=== PATIENT | female | born 1995 | race Caucasian/White ===

== ENCOUNTER 2024-09-21 10:47 | Outpatient (REF) | payer BC, SELFPAY ==
[2024-09-21 17:00] LABS: Hematocrit 44.5 % (37.0-47.0); Hemoglobin 15.4 g/dl (12.0-16.0); Mean Corpuscular HGB Conc 34.6 g/dl (31.0-35.0); Mean Corpuscular Hemoglobin 30.7 pg (27.0-33.0); Mean Corpuscular Volume 88.6 fL (80.0-98.0); Mean Platelet Volume 11.3 fL (9.4-12.3); Platelet Count 256 X10*3/uL (160-400); Red Blood Count 5.02 X10*6/uL (4.20-5.50); Red Cell Distribution Width 11.9 % (11.0-16.0); White Blood Count 8.7 X10*3/uL (4.8-10.8)
[2024-09-21 17:24] LABS: Alanine Aminotransferase 15 U/L (0-31); Albumin Level 4.5 g/dL (3.5-5.0); Alkaline Phosphatase 46 U/L (39-117); Anion Gap 13 (12-20); Aspartate Amino Transferase 21 U/L (5-31); Bilirubin Total 0.4 mg/dL (0.0-1.0); Blood Urea Nitrogen 10 mg/dL (9-16); Calcium 9.4 mg/dL (8.4-10.2); Carbon Dioxide 22 mmol/L (22-29); Chloride 107 mmol/L (96-108); Estimated Glomerular Filt Rate > 60; Glucose Random 83 mg/dL (60-115); Sodium 138 mmol/L (135-145); Total Protein 7.5 g/dL (6.5-8.0)
[2024-09-21 17:25] LABS: Creatinine Urine 39.23 mg/dL; Microalbumin Urine < 5.0 mg/L
[2024-09-21 17:31] LABS: Monotest Negative (Negative)
[2024-09-21 17:38] LABS: Estimated Average Glucose 100 mg/dL; Hemoglobin A1C 121.0911 umol/L; Hemoglobin A1c % 5.1 % (<6.0); Total Hemoglobin (HGBA1C) 3787.2048 umol/L
[2024-09-21 17:42] LABS: TSH reflex Free T4 4.25 uIU/mL (0.32-4.0); Vitamin D 25-OH Total 95.4 ng/mL (>30)
[2024-09-21 17:44] LABS: Erythrocyte Sedimentation Rate 3 MM/HR (0-20)
[2024-09-21 17:49] LABS: Folate 13.8 ng/mL (> or = 4.0); Vitamin B12 404 pg/mL (200-900)
[2024-09-21 18:31] LABS: Free T4 (Free Thyroxine) 0.96 ng/dL (0.71-1.85)
[2024-09-22 10:48] LABS: CRP High Sensitivity 4.3 mg/L
[2024-09-22 17:04] LABS: LDL Cholesterol Direct 128 mg/dL (<100)
== END 2024-09-21 10:48 | disposition home or self-care (01) ==
LOC: HO.HMGCLDS 10:47
PROVIDERS: PCP Nurse Practitioner Family; Visit Provider Nurse Practitioner Family
DX: Z00.01 Encounter for general adult medical examination with abnormal findings (principal); Z23 Encounter for immunization; R59.0 Localized enlarged lymph nodes; E01.0 Iodine-deficiency related diffuse (endemic) goiter; J34.3 Hypertrophy of nasal turbinates; F33.1 Major depressive disorder, recurrent, moderate; F41.1 Generalized anxiety disorder; J30.2 Other seasonal allergic rhinitis; B97.7 Papillomavirus as the cause of diseases classified elsewhere; Z80.41 Family history of malignant neoplasm of ovary; Z80.52 Family history of malignant neoplasm of bladder
CPT/HCPCS: 36415; 80053; 82043; 82306; 82570; 82607; 82746; 83036; 83721; 84439; 84443; 85027; 85652; 86141; 86308; 90471; 90715; 96127

== ENCOUNTER 2024-09-21 10:47 | Outpatient (AMB) | payer BC, SELFPAY ==
--- NOTE | 2024-09-21 10:50 | A.OFFPC_ITS ---
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: No Was dental information given to patient?: Patient has dentist HPI HPI Comments History of Present Illness Details 29 y/o F with AJAY, MDD, seasonal allergi es, HPV, family hx ovarina cancer, family hx off bladder cancer s/p LEEP, salivary gland removed L Family hx: ovarian ca, bladder ca Social: School for [employer], works as [employer] Health Maintenance Flu declined Tdap today Pap hx of abnormal, 2023 normal managed by [facility] Neuro - no longer following [facility] Prescriber/Counselor Here today to est care & for a CPE, coming from Dr Perez, very limited MR rec'd and reviewed prior to visit; US 08/2020 Right internal jugular chain lymphadenopathy 0.8x1.8x2.6cm She does not have quileute syndrome Saw ENT for salivary gland on R removal Abnormal IMMUNOPATHOLOGIST US now MRI ordered and pending Swollen turbinates hard time breathing MDD/AJAY currently managed by outside prescriber however wonders if PCP can take over meds. c/o chronic R cervical lymphadenopathy. This condition was first noted in 2019 following an ultrasound that revealed a right internal jugular chain lymph node which was abnormal but indeterminate. She has experienced persistent swelling in several lymph nodes, unchanged over the last six years. The patient reports a sensation of hearing her heartbeat upon palpating the nodes, which is concerning for underlying pathology. She has not been followed up by an ear, nose, and throat (ENT) specialist despite previous recommendations, which were misunderstood to involve care in [place], where follow-up did not occur. There have been no changes in the size of the lymph nodes. Additionally, the patient had an abnormal pelvic ultrasound conducted recently due to worsening pelvic pain, which revealed the presence of masses in her lower abdomen. An MRI is pending. The patient has a family history of ovarian cancer and bladder cancer, which heightens her concern about these findings. 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 She uses an oral appliance for TMJ management. Socially, the patient relocated from [place] to [place] in 2019, impacting her access to consistent healthcare at the time. Health Maintenance - Discussed immunization status; patient declined flu vaccine. - Recommended updating tetanus vaccine; administered today. - Screening labs ordered for blood work including diabetes and cholesterol. - Encouraged use of patient portal for [facility] communication and access. - Discussed importance of regular pelvic exams and Pap smears. Review of Systems - ENT/Head: Reports nasal obstruction an d facial pain. - Cardiovascular: Reports hearing heartb eat in right ear upon palpation. - Neurological: Denies current facial pa in. - Mental Health: Reports well-controlled anxiety and depression. Exam: General: Well developed, well nourished, in no acute distress. Appears stated age. Head: Normocephalic, atraumatic. Eyes: Pupils are equal, round and reactive to light and accommodation. Conjunctivae are clear. Vision grossly normal. Ears: TMs clear AU, EACS WNL Nose: Patent, without discharge. Turbinates edematous bilat Mouth: There are no ulcers or lesions noted. No inflammation, no post nasal drip, no plaques nor exudates. Neck: Supple, palpable lymph nodes in the right internal jugular chain, some tenderness noted, thyroid palp nontender , trachea midline Lungs: Clear to auscultation bilaterally. No rales, rhonchi or wheeze noted. Good air flow in all [place]. Heart: Regular rate and rhythm. No murmurs, click, rubs or gallops are noted. Abdomen: Bowel sounds present in all quadrants. The abdomen is soft, nontender, with no masses or organomegaly noted. No hernias are noted. Musculoskeletal: Joints are nontender, without swelling, redness, or effusions. Range of motion is observed to be normal. Pulses: Peripheral pulses are equal and palpable bilaterally. Extremities: No clubbing, cyanosis nor edema is noted. Neurologic: Gait and station normal. Cranial Nerves 2-12 intact. Motor strength grossly symmetrical and intact. No sensory loss. Balance normal. Skin: No rashes, ulcers, or lesions noted. Turgor is good. Skin color is good. Hair and nails are without abnormalities. Psych: Normal eye contact, affect and mood appropriate, and normal interactions. Patient is alert and appropriate to context. Plan - Cervical Lymphadenopathy: Order a CT s can of soft tissue neck including thyroid to evaluate lymph nodes and thyroid gland status & refer to ENT in [place]. - Abnormal Pelvic Findings: Await MRI fo r further evaluation of pelvic masses. Maintain communication with patient regarding MRI scheduling and results which is being managed by IMMUNOPATHOLOGIST. - Swollen Turbinates: Refer to ENT for f urther evaluation and potential treatment options. - TMJ Dysfunction: Continue using oral a ppliance; consider referral to dental specialist for advanced TMJ therapies. - Mental Health: Continue current medica tions lorazepam, lamotrigine, citalopram and monitor for efficacy. - Vaccination: Administer tetanus booste r. - Screening: Ensure completion of blood screening tests for baseline evaluation and pre-CT scan requirements. Patient was informed and verbally consented to the use of an ambient scribe for clinic note documentation during this visit. Discussion Notes During the consultation, we discussed the history of lymphadenopathy and the potential need for ENT follow-up, given the lack of prior follow-up in [place]. I clarified the plan to pursue a CT scan to assess lymphatic and thyroid structures more thoroughly. We reviewed the importance of monitoring any changes in cervical nodes and emphasized timely communication of any worrisome symptoms. Regarding the pelvic findings, we acknowledged the anxiety stemming from family cancer history and discussed the MRI as a crucial next step. I recommended ENT consultation for nasal congestion and possible TMJ linkages to facial pain. We also reviewed the patient's medication regimen and addressed concerns about continuity of psychiatric prescriptions if counseling services are concluded. Screening labs will be pursued to ensure complete evaluation and peace of mind. Patient Instructions - Schedule and attend the CT scan as adv ised. - Ensure timely completion of the MRI fo r pelvic evaluation. - Follow up with ENT as per referral for nasal and TMJ issues. - Adhere to prescribed psychotropic medi cations consistently. - Attend follow-up appointment with me ander jackson approximately four weeks for results discussion. - Utilize the patient portal actively fo r updates and communication. - Complete blood screening tests at a co nvenient location within the network. Telehealth fu in 4 weeks to review labs and imaging, sooner PRN This note is constructed using voice recognition software. While every effort has been made to ensure accuracy in business analysis specialist, still errors may have been included Sometimes, these errors may affect the content or meaning of the given sentence . An additional 30 minutes was spent addressing the problem(s) noted at todays visit. This includes time spent before the visit reviewing the chart, time spent during the visit, and time spent after the visit on documentation PFSH Medical History (Updated 09/21/24 @ 12:51 by TAM Garcia) Salivary duct stones Abnormal pelvic exam Surgical History (Updated 09/21/24 @ 11:43 by TAM Garcia) H/O LEEP No pertinent past surgical history Family History (Updated 09/21/24 @ 11:01 by Loy Pabon MA) Father Mental health disorder Substance abuse Mother Mental health disorder Substance abuse Asthma Cardiovascular disease Paternal Grandmother Cancer Social History (Updated 09/21/24 @ 10:59 by Loy Pabon MA) Household Members: Significant Other Both parents involved: No Caregiver staying overnight: No Housing: House Are you a primary healthcare applications analyst to a significant other at home: No Do you presently have visiting nurse or other home services: No 75 years or older and lives alone: No Alcohol intake: current Alcohol intake frequency: a few times a month Patient Tobacco Use Status: Never used Tobacco e-Cigarette/Vaping Use: Never Used Second Hand Smoke Exposure: No Current occupational status: employed 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 1. Little interest or pleasure in doing things: not at all 2. Feeling down, depressed, or hopeless: not at all 3. Trouble falling or staying asleep, or sleeping too much: not at all 4. Feeling tired or having little energy: not at all 5. Poor appetite or overeating: not at all 6. Feeling bad about yourself - or that you are a failure or have let yourself or your family down: not at all 7. Trouble concentrating on things, such as reading the newspaper or watching television: not at all 8. Moving or speaking so slowly that other people could have noticed. Or the opposite - being so fidgety or restless that you have been moving around a lot more than usual: not at all 9. Thoughts that you would be better off or of hurting yourself in some way: not at all Total score: 0 Depression Screening Interpretation: Negative Depression Screening Done: Yes 09800 - PHQ-9 Billing: Yes Source: Developed by Drs. Valente Raphael, Camila Claudio, Brian Owen and colleagues, with an educational kaleb from [employer]. Thrive Questionnaire Date Thrive assessed: 09/21/24 I am a: Patient What is your living situation today?: I have a steady place to live Within the past 12 months, did the food you bought not last and you didn't have the money to get more?: Never true Within the past 12 months, did you worry whether your food would run out before you got money to buy more?: Never true Do you have trouble paying for medicines?: No Do you have trouble getting transportation to medical appointments?: No Do you have trouble paying your heating and electricity bill?: No Do you have trouble taking care of your child, family member or friend?: No Do you have trouble with day-to-day activities such as bathing, preparing meals, shopping, managing finances, etc.?: No Are you currently unemployed and looking for a job?: No Are you interested in more education?: No Please select the resources that you would like help with: None Currently or been in a relationship where the following occur: No concerns reported THRIVE Score: 0 AUDIT C Alcohol Use Questionnaire (AUDIT-C) 1. How often do you have a drink containing alcohol?: Monthly or less 2. How many drinks containing alcohol do you have on a typical day when you are drinking?: 1 or 2 3. How often do you have six or more drinks on one occasion?: Never Total Score: 1 Score Reviewed/Action Taken: Yes AJAY-7 AMB Questionnaire AJAY-7 Date AJAY - 7 assessed: 09/21/24 Feeling nervous, anxious, or on edge: 1 = Several days Not being able to stop or control worryin = Not at all Worrying too much about different things: 0 = Not at all Trouble relaxin = Not at all Being so restless that it is hard to sit still: 0 = Not at all Becoming easily annoyed or irritable: 0 = Not at all Feeling afraid as if something awful might happen: 0 = Not at all Total AJAY-7 score (0-4 normal; 5-9 mild; 10-14 moderate; 15-21 severe): 1 Source: Developed by Drs. Valente Raphael, Camila Claudio, Brian Owen and colleagues, with an educational kaleb from [employer]. AJAY-7 Assessment Billing AJAY-7 Assessment Tool: AJAY-7 Assessment 15839 Physical exam (Primary Care) Vital Signs: Last Vital Signs Pulse 77 09/21/24 11:02 Resp 13 09/21/24 11:02 BP 112/68 09/21/24 11:02 Pulse Ox 99 09/21/24 11:02 Oxygen Delivery Method Room Air 09/21/24 11:02 BMI result Body Mass Index 25.2 Tobacco/Smoking Status: Tobacco use Status Tobacco use date assessed 09/21/24 09/21/24 11:03 Patient Tobacco Use Status Never used Tobacco 09/21/24 11:03 e-Cigarette/Vaping Use Never Used 09/21/24 11:03 PHQ-9: PHQ-9 Score PHQ-9: Total score 0 09/21/24 11:51 Depression Screening Interpretation: Negative Thrive Assessment: Date of Thrive Assessment Date Thrive assessed 09/21/24 09/21/24 10:51 Currently or been in a relationship where the following occur: No concerns reported Immunizations Boostrix Tdap 2.5 Lf unit-8 mcg-5 Lf/0.5 mL intramuscular syringe Performing Provider: TAM Garcia Performing Location: [facility] [place] Family Medicine Administered by: Christal Fonseca RN on 09/21/24 11:51 Dose Route Admin Location Dispensed Lot Number Expiration Date NDC Dovetailer 0.5 mL IM Left Deltoid 0.5 mL [id number] 11/04/26 [id number] 1C Company VIS Given Date VIS Provided VIS Publication Date 09/21/24 Single Vaccine 21 Eligibility Eligibility Date Funding Source Not [facility] Eligible 09/21/24 Private Coding Level of Care Code New Pt Level 4 (71034) New Pt Prev Care 18-39yr(40691 Diagnoses Encounter for general adult medical examination with abnormal findings Z00.01 Influenza vaccination declined Z28.21 Laboratory exam ordered as part of routine general medical examination Z00.00 Need for Tdap vaccination Z23 Cervical lymphadenopathy R59.0 Thyromegaly E01.0 Hypertrophy of nasal turbinates J34.3 Moderate episode of recurrent major depressive disorder F33.1 Major depression episode severity: moderate AJAY (generalized anxiety disorder) F41.1 Seasonal allergies J30.2 Family history of ovarian cancer Z80.41 Family history of bladder cancer Z80.52 HPV in female B97.7 Additional Codes AJAY-7 Assessment Billing - AJAY-7 Assessment Tool: AJAY-7 Assessment 71566 ([id number]) PHQ-9 - 13865 - PHQ-9 Billing: Yes ([id number]) Assessment & Plan Assessment & Plan (1) Encounter for general adult medical examination with abnormal findings: Code(s): Z00.01 - Encounter for general adult medical examination with abnormal findings (2) Influenza vaccination declined: Code(s): Z28.21 - Immunization not carried out because of patient refusal Category: Medical (3) Laboratory exam ordered as part of routine general medical examination: Code(s): Z00.00 - Encounter for general adult medical examination without abnormal findings Category: Medical (4) Need for Tdap vaccination: Code(s): Z23 - Encounter for immunization Category: Medical (5) Cervical lymphadenopathy: Code(s): R59.0 - Localized enlarged lymph nodes Category: Medical (6) Thyromegaly: Code(s): E01.0 - Iodine-deficiency related diffuse (endemic) goiter Category: Medical (7) Hypertrophy of nasal turbinates: Code(s): J34.3 - Hypertrophy of nasal turbinates Category: Medical (8) MDD (major depressive disorder), recurrent episode: Code(s): F33.9 - Major depressive disorder, recurrent, unspecified Category: Medical Qualifiers: Major depression episode severity: moderate Qualified Code(s): F33.1 - Major depressive disorder, recurrent, moderate (9) AJAY (generalized anxiety disorder): Code(s): F41.1 - Generalized anxiety disorder Category: Medical (10) Seasonal allergies: Code(s): J30.2 - Other seasonal allergic rhinitis Category: Medical (11) Family history of ovarian cancer: Code(s): Z80.41 - Family history of malignant neoplasm of ovary Category: Medical (12) Family history of bladder cancer: Code(s): Z80.52 - Family history of malignant neoplasm of bladder Category: Medical (13) HPV in female: Code(s): B97.7 - Papillomavirus as the cause of diseases classified elsewhere Category: Medical Plan . Orders: Orders Complete Blood Count no Diff Today R59.0 - Localized enlarged lymph nodes, Z00.00 - Encounter for general adult medical examination without abnormal findings LDL Cholesterol Direct Today R59.0 - Localized enlarged lymph nodes, Z00.00 - Encounter for general adult medical examination without abnormal findings Comprehensive Met. Panel Today R59.0 - Localized enlarged lymph nodes, Z00.00 - Encounter for general adult medical examination without abnormal findings Microalbumin, Random (w Creat) Today R59.0 - Localized enlarged lymph nodes, Z00.00 - Encounter for general adult medical examination without abnormal findings Vitamin B12 and Folate Today R59.0 - Localized enlarged lymph nodes, Z00.00 - Encounter for general adult medical examination without abnormal findings Monotest Today R59.0 - Localized enlarged lymph nodes, Z00.00 - Encounter for general adult medical examination without abnormal findings Erythrocyte Sedimentation Rate Today R59.0 - Localized enlarged lymph nodes, Z00.00 - Encounter for general adult medical examination without abnormal findings TDaP Immunization Today Z23 - Encounter for immunization Hemoglobin A1c Today R59.0 - Localized enlarged lymph nodes, Z00.00 - Encounter for general adult medical examination without abnormal findings TSH reflex Free T4 Today R59.0 - Localized enlarged lymph nodes, Z00.00 - Encounter for general adult medical examination without abnormal findings Vitamin D 25-OH Total Today R59.0 - Localized enlarged lymph nodes, Z00.00 - Encounter for general adult medical examination without abnormal findings CRP High Sensitivity Today R59.0 - Localized enlarged lymph nodes, Z00.00 - Encounter for general adult medical examination without abnormal findings CT soft tissue neck w IV con Today E01.0 - Iodine-deficiency related diffuse (endemic) goiter, R59.0 - Localized enlarged lymph nodes Referrals Ear/Nose/Throat Referral J34.3 - Hypertrophy of nasal turbinates, R59.0 - Localized enlarged lymph nodes Patient Instructions: Health screenings for women You should visit your health care provider from time to time, even if you are healthy. The purpose of these visits is to: Screen for medical issues Assess your risk for future medical problems Encourage a healthy lifestyle Update vaccinations and other preventive care services Help you get to know your provider in case of an illness Information Even if you feel fine, you should still see your provider for regular checkups. These visits can help you avoid problems in the future. For example, the only way to find out if you have high blood pressure is to have it checked regularly. High blood sugar and high cholesterol levels also may not have any symptoms in the early stages. A simple blood test can check for these conditions. There are specific times when you should see your provider or receive specific health screenings. The [place] Preventive Services Task Force publishes a list of recommended screenings. Below are screening guidelines for women ages 18 to 39. BLOOD PRESSURE SCREENING Your blood pressure should be checked at least once every 3 to 5 years if: Your blood pressure is in the normal range (top number less than 120 mm Hg and bottom number less than 80 mm Hg) You don't have risk factors for high blood pressure Ask your provider if you need your blood pressure checked more often if: The top number is 120 to 129 mm Hg or the bottom number is 70 to 79 mm Hg You have diabetes, heart disease, kidney problems, are overweight, or have certain other health conditions You have a first-degree relative with high blood pressure You are Black You had high blood pressure during a If the top number is 130 mm Hg or greater or the bottom number is 80 mm Hg or greater, this is considered stage 1 hypertension. Schedule an appointment with your provider to learn how you can reduce your blood pressure. Watch for blood pressure screenings in your area. Ask your provider if you can stop in to have your blood pressure checked. BREAST CANCER SCREENING Experts do not agree about the benefits of breast self-exams in finding breast cancer or saving lives. Talk to your provider about what is best for you. A screening mammogram is not recommended for most women under age 40. Your provider may discuss and recommend mammograms, MRI scans, or ultrasounds if you have an increased risk for breast cancer, such as: A mother or sister who had breast cancer at a young age (most often starting screening earlier than the age the close relative was diagnosed) You carry a high-risk genetic marker CERVICAL CANCER SCREENING Cervical cancer screening should start at age 21 years unless your provider advises otherwise. After the first test: Women ages 21 through 29 should have a Pap test every 3 years. Exoprts do not agree on whether HPV testing is recommended for this age group. Women ages 30 through 65 should be screened with either a Pap test every 3 years or the HPV test every 5 years or both tests every 5 years (called cotesting ). Women who have been treated for precancer (cervical dysplasia) should continue to have Pap tests for 20 years after treatment or until age 65, whichever is longer. If you have had your uterus and cervix removed (total hysterectomy), and you have not been diagnosed with cervical cancer or precancer (high grade cervical neoplasia), you do not need cervical cancer screening. CHOLESTEROL SCREENING Cholesterol screening should begin at: Age 45 for women with no known risk factors for coronary heart disease Age 20 for women with known risk factors for coronary heart disease Repeat cholesterol screening should take place: Every 5 years for women with normal cholesterol levels More often if changes occur in lifestyle (including weight gain and diet) More often if you have diabetes, heart disease, kidney problems, or certain other conditions DIABETES SCREENING You should be screened for diabetes starting at age 35 and then repeated every 3 years if you have no risk factors for diabetes. Screening may need to start earlier and be repeated more often if you have other risk factors for diabetes, such as: You have a first degree relative with diabetes. You are overweight or have obesity. You have high blood pressure, prediabetes, or a history of heart disease. Screening for diabetes should be done if you are planning to become and you are overweight and have other risk factors such as high blood pressure. DENTAL EXAM Go to the dentist once or twice every year for an exam and cleaning. Your dentist will evaluate if you need more frequent visits. EYE EXAM Have an eye exam every 5 to 10 years before age 40. If you have vision problems, have an eye exam every 2 years or more often if recommended by your provider. You should have an eye exam that includes an examination of your retina (back of your eye) at least every year if you have diabetes. IMMUNIZATIONS Commonly needed vaccines include: Flu shot: get one every year. COVID-19 vaccine: ask your provider what is best for you. Tetanus-diphtheria and acellular pertussis (Tdap) vaccine: have one at or after age 19 as one of your tetanus-diphtheria vaccines if you did not receive it as an adolescent. Tetanus-diphtheria: have a booster (or Tdap) every 10 years. Varicella vaccine: receive 2 doses if you never had chickenpox or the varicella vaccine. Hepatitis B vaccine: receive 2, 3, or 4 doses, depending on your exact circumstances. Measles, mumps, and rubella (MMR) vaccine: receive 1 to 2 doses if you are not already immune to MMR. Your provider can tell you if you are immune. Ask your provider about the human papillomavirus (HPV) vaccine if: You have not received the HPV vaccine in the past You have not completed the full vaccine series (you should catch up on this shot) Ask your provider if you should receive other immunizations if you have certain health problems that increase your risk for some diseases such as pneumonia. INFECTIOUS DISEASE SCREENING Women who are sexually active should be screened for chlamydia and gonorrhea up until age 25. Women 25 years and older should be screened for chlamydia and gonorrhea if at high risk. Screening for hepatitis C: All adults ages 18 to 79 should get a one-time test for hepatitis C. people should be screened at every . Screening for human immunodeficiency virus (HIV): All people ages 15 to 65 should get a one-time test for HIV. Depending on your lifestyle and medical history, you may also need to be scr eened for infections such as syphilis and HIV, as well as other infections. PHYSICAL EXAM All adults should visit their provider from time to time, even if they are healthy. The purpose of these visits is to: Screen for disease Assess your risk of future medical problems Encourage a healthy lifestyle Update your vaccinations and other preventive care services Maintain a relationship with a provider in case of an illness Your height, weight, and BMI should be checked at every exam. During your exam, your provider may ask you about: Depression and anxiety Diet and exercise Alcohol and tobacco use Safety issues, such as using seat belts, smoke detectors, and intimate partner violence Your medicines and risk for interactions SKIN SELF-EXAM Your provider may check your skin for signs of skin cancer, especially if you're at high risk, such as if you: Have had skin cancer before Have close relatives with skin cancer Have a weakened immune system OTHER SCREENING Talk with your provider about colon cancer screening if you have a strong family history of colon cancer or polyps, or if you have had inflammatory bowel disease or polyps yourself. Routine bone density screening of women under 40 is not recommended. Walk-In Care (Urgent Care): We Make it Easy Walk-in for urgent medical issues such as: ? Seasonal Allergies ? Insect Bites ? Cough ? Diarrhea ? Acute Asthma Attacks ? Back, Knee or Joint Pain ? Ear Infection ? Fever without a Rash ? Headaches ? Nausea ? [place] [facility], Rash or Skin Irritation ? Sore Throat ? Sports Physicals ? Vomiting Most insurances are accepted. Patients do not need to be part of the [facility] to seek care at the walk-in clinic. Locations [facility] , [place] [address] ? [phone] [facility] Walk-In Care in [place] provides services to ages 18 and over. Open Saturday-Saturday: 8 a.m. to 5 p.m. and Saturday: 9 a.m. to 3 p.m.* *Hours may vary due to staffing availability. To confirm Walk-In Care hours in [place], please call [phone]. [address] [place] [id number] ? [phone] [facility] Walk-In Care in [place] provides services to ages 12 and over. Open Saturday-Saturday: 8 a.m. to 5 p.m. Hours may vary due to staffing availability. To confirm Walk-In Care hours in [place], please call [phone]. LABORATORY SERVICES: [facility] Lab ? Primary Location [address] [place] [address] Saturday through Saturday 6:00 AM ? 5:00 PM Saturday 7:00 AM ? 11:00 AM* [phone] The [facility] Lab is centrally located near the front entrance of the [facility] for easy outpatient access. Convenient parking is provided for outpatients. *Hours may vary due to staffing availability. To confirm Laboratory hours for any location, please call [phone]. Offsite Location For your convenience, we offer offsite laboratory draw stations at the following locations: [address] [facility], [place] ? [facility] [address] [facility], [address], [place] Saturday through Saturday 7:30 AM ? 1:00 PM* [phone] *Hours may vary due to staffing availability. To confirm Laboratory hours for any location, please call [phone]. [place] ? [facility] [address] [facility] Saturday through Saturday 6:00 AM ? 3:30 PM* Saturday 6:30 AM ? 3 PM* [phone] *Hours may vary due to staffing availability. To confirm Laboratory hours for any location, please call [phone]. [address] [facility] Saturday through Saturday 7:30 AM ? 4:00 PM* [phone] *Hours may vary due to staffing availability. To confirm Laboratory hours for any location, please call [phone] [place] [address] Saturday through 9:00 AM ? 4:00 PM* *Hours may vary due to staffing availability. To confirm Laboratory hours for any location, please call [phone]. Appointments are not necessary. Walk-ins are welcome. Like all the departments throughout the [facility], our Lab undergoes frequent reviews to ensure the quality and accuracy of test results, and our staff takes special pride in its status as a nationally accredited facility. Patient Portal: ONE PATIENT. ONE RECORD. BETTER CARE. [facility] has a fully integrated, cutting- edge mobile electronic health information system that has revolutionized the way we care for our patients and manage our organization. This system improves communication and coordination enabling us to provide safe, higher-quality care, and an overall positive experience for staff and patients. Our first priority, as always, is to deliver the highest quality care possible. The system is running in the background supporting that priority. This portal is for all [facility] services and practices. If you are experiencing any technical difficulties with enrolling or logging into the Patient Portal please complete the [facility] Patient Portal Technical Support Form. [facility] now offers a new secure on-line interactive tool for patients to review their health information ? Patient Portal. This interactive web portal will enable patients and their families to take an active role in their care by providing easy, secure access to their health information via the internet. The Patient Portal provides patients with instant access to their health information, including laboratory results, medications, allergies, demographic information, visit history, and more. In addition to managing their own care, parents and health care proxies with authorized consent will appreciate the ability to access the records of those individuals for whom they provide care. Please note: if you wish to gain access (Proxy) to another patient?s portal, you will be required to come to the Medical Records Department in person at [facility]. Both the patient giving proxy access and the proxy will need to provide photo identification and complete the appropriate authorization. The Patient Portal also allows track their appointments online. The [facility] Patient Portal also saves patients time by allowing them to submit updates to their demographic and contact information prior to their visits. Portal email notifications will also alert patients to any new activity on their portal, such as test results and new appointments. In order to initially enroll in the [facility] Patient Portal, you will need to enter some required information including the following: ? your [facility] Medical Record number ? your personal home email address ? name ? date of Please note: In order to enroll in the [facility] Patient Portal, we need to have your email address on file in your electronic medical record. The email address needs to be specific for one person (yourself) in order for your Portal enrollment to be successful. You can update your email address in person with our Registration staff when you are registering for a hospital visit. Otherwise, you will need to come to the Health Information Management (Medical Records) Department at [facility]. We are open from Saturday ? Saturday from 7:30 a.m. ? 4:30 p.m. You will be required to present a photo id. Once you have successfully enrolled in the Patient Portal, you will receive a one-time user id and password for the Portal, sent to your email address. This will allow you to log into the Patient Portal within 99 hrs and reset your own logon id and password, and define personal security questions. Once your permanent login and password have been set, you can log into the [facility] Patient Portal at any time via the blue button above or from the Portal Logon button on any page of the [facility] website. [facility] and [facility] encourage all of our patients to enroll in Patient Portal as it presents a valuable opportunity for patients and their families to actively participate in their care and stay healthy Welcome to [facility]. We look forward to working with you.
[2024-09-21 11:02] VITALS: BP 112/68; PULSE 77; RESP 13; O2SAT 99; BMI 25.2
== END 2024-09-21 11:50 | disposition home or self-care (01) ==
PROVIDERS: PCP Nurse Practitioner Family; Visit Provider Nurse Practitioner Family
DX: Z00.00 Encounter for general adult medical examination without abnormal findings (principal); R59.0 Localized enlarged lymph nodes; E01.0 Iodine-deficiency related diffuse (endemic) goiter; F33.1 Major depressive disorder, recurrent, moderate; J34.3 Hypertrophy of nasal turbinates; Z28.21 Immunization not carried out because of patient refusal; Z23 Encounter for immunization; F41.1 Generalized anxiety disorder; J30.2 Other seasonal allergic rhinitis; Z80.41 Family history of malignant neoplasm of ovary; Z80.52 Family history of malignant neoplasm of bladder; B97.7 Papillomavirus as the cause of diseases classified elsewhere

== ENCOUNTER 2024-10-19 15:25 | Outpatient (AMB) | payer BC, SELFPAY ==
--- NOTE | 2024-10-19 16:20 | MHC.PC.OV ---
Intake Visit Reasons: [address], LABS Allergies Penicillins Allergy (Severe, Verified 10/19/24 16:22) Swelling Medication List - Last Reconciled 10/19/24 by BUTCH Garcia- cetirizine (Zyrtec) 10 mg PO DAILY PRN citalopram 40 mg PO DAILY etonogestrel-ethinyl estradiol 0.12-0.015 mg/24 hr (NuvaRing) 1 vag ring vaginal Q4W lamotrigine 50 mg PO BID lorazepam 0.5 mg PO DAILY PRN Tobacco use date assessed: 09/21/24 Dental Screening Dental Screen Date: 09/21/24 HPI HPI Comments History of Present Illness Details 29 y/o F with AJAY, MDD, seasonal allergies, HPV, family hx ovarina cancer, family hx off bladder cancer s/p LEEP, salivary gland removed L Family hx: ovarian ca, bladder ca Social: [employer], works as [employer] Health Maintenance Flu declined Tdap 2023 Pap hx of abnormal, 2023 normal managed by [facility] E[facility] Neuro - no longer following [facility] Prescriber/Counselor The patient is a 29-year-old female presenting with concerns regarding chronic cervical lymphadenopathy. The lymphadenopathy has been present for years, and she reports episodes of hearing popping sounds which she associates with the rapid opening and closing near the lymph nodes. She mentions occasionally feeling a heartbeat sensation in the affected area, which is rare. The lymphadenopathy has not significantly changed over time, and she expresses some optimism due to the stability of the condition. Pelvic MRI returned normal, her [facility] doctor remains confused about these conflicting results. Further investigation is advised to rule out endometriosis due to pelvic pain exacerbated around menstruation. The pelvic pain is described as cramping and dragging sensations beth to a hot knife through her abdomen. Review of Systems - Head and Neck: Reports hearing popping sounds and feeling heartbeat sensations at the site of lymphadenopathy. - Musculoskeletal: Denies any other joint pain beyond what was mentioned. - Genitourinary: Reports persistent pelvic pain with symptoms suggestive of endometriosis but not conclusively diagnosed. results reviewed 09/21/24 CRP ^ 4.3 , LDL 128 MRI @ [facility] 10/12/[address] of neck pending ... PA needed Plan - Investigate the need for a prior authorization for the pending CT scan focusing on chronic cervical lymphadenopathy. - Await consultation with ENT in November to assess chronic cervical lymphadenopathy, preferably when CT results are available. - Follow up with [facility] specialist regarding symptoms suggestive of endometriosis, necessitating differential diagnosis beyond recent normal MRI results. - Monitor cholesterol levels annually given borderline hypercholesterolemia and reinforce healthy lifestyle and dietary modifications. - Note the elevated inflammatory marker for future laboratory evaluations as it may correlate with current symptoms but lacks specificity. Patient was informed and verbally consented to the use of an ambient scribe for clinic note documentation during this visit. Discussion Notes We discussed the unclear etiology behind the chronic cervical lymphadenopathy and the potential for more comprehensive evaluation pending a CT scan once we secure a prior authorization. I reassured the patient that, despite the MRI's normal findings, it is prudent to pursue further specialty evaluation with an ENT. I advised on how some imaging results might be overread and that seeing a specialist may bring further clarity and potential management options. Regarding her cholesterol levels, I emphasized the importance of healthy dietary habits and regular monitoring given her age and slightly elevated readings. For her pelvic symptoms, the discussion acknowledged possible endometriosis, which requires a specialist?s input for definitive evaluation. No immediate therapeutic changes are warranted based on current lab results. Patient Instructions - Follow up with the ENT specialist as scheduled in November and ensure CT scan results are available before the appointment. - Report any new symptoms or changes in current symptoms promptly. - Maintain healthy lifestyle and dietary habits to manage cholesterol levels. - Keep in contact with [facility] specialist and forward any results or updates as received. - Expect a phone call from the office regarding the status of the CT scan authorization. Total time spent caring for the patient today was 21 minutes. This includes time spent before the visit reviewing the chart, time spent during the visit, and time spent after the visit on documentation PFSH Medical History (Updated 10/19/24 @ 16:32 by TAM Garcia) Salivary duct stones Abnormal pelvic exam Surgical History (Updated 09/21/24 @ 11:43 by TAM Garcia) H/O LEEP No pertinent past surgical history Family History (Updated 09/21/24 @ 11:01 by Loy Pabon MA) Father Mental health disorder Substance abuse Mother Mental health disorder Substance abuse Asthma Cardiovascular disease Paternal Grandmother Cancer Social History (Updated 09/21/24 @ 10:59 by Loy Pabon MA) Household Members: Significant Other Both parents involved: No Caregiver staying overnight: No Housing: House Are you a primary home care giver to a significant other at home: No Do you presently have visiting nurse or other home services: No 75 years or older and lives alone: No Alcohol intake: current Alcohol intake frequency: a few times a month Patient Tobacco Use Status: Never used Tobacco e-Cigarette/Vaping Use: Never Used Second Hand Smoke Exposure: No Current occupational status: employed 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 Cognitive needs: No Hearing needs: No Vision needs: No Questionnaire Thrive Questionnaire Date Thrive assessed: 09/21/24 I am a: Patient What is your living situation today?: I have a steady place to live Within the past 12 months, did the food you bought not last and you didn't have the money to get more?: Never true Within the past 12 months, did you worry whether your food would run out before you got money to buy more?: Never true Do you have trouble paying for medicines?: No Do you have trouble getting transportation to medical appointments?: No Do you have trouble paying your heating and electricity bill?: No Do you have trouble taking care of your child, family member or friend?: No Do you have trouble with day-to-day activities such as bathing, preparing meals, shopping, managing finances, etc.?: No Are you currently unemployed and looking for a job?: No Are you interested in more education?: No Please select the resources that you would like help with: None Currently or been in a relationship where the following occur: No concerns reported THRIVE Score: 0 AUDIT C Alcohol Use Questionnaire (AUDIT-C) 2. How many drinks containing alcohol do you have on a typical day when you are drinking?: 1 or 2 3. How often do you have six or more drinks on one occasion?: Less than monthly Total Score: 1 AJAY-7 AMB Questionnaire AJAY-7 Date AJAY - 7 assessed: 09/21/24 Source: Developed by Drs. Valente Raphael, Camila Claudio, Brian Owen and colleagues, with an educational kaleb from [employer] Physical exam (Primary Care) Tobacco/Smoking Status: Tobacco use Status Tobacco use date assessed 09/21/24 10/19/24 16:20 Patient Tobacco Use Status Never used Tobacco 10/19/24 16:20 e-Cigarette/Vaping Use Never Used 10/19/24 16:20 Thrive Assessment: Date of Thrive Assessment Date Thrive assessed 09/21/24 10/19/24 16:20 Currently or been in a relationship where the following occur: No concerns reported Telehealth Telehealth Telehealth Platform: [employer] Location of provider rendering services: practice address Location of patient: address on file Patient Identification confirmed using: Name, : Yes Telehealth method: voice only Patient verbally consented to treatment: Yes Patient verbally consented to billing insurance company: Yes Patient informed of any privacy concerns related to visit: Yes Minutes spent on Phone/Video with Pt.: 13 Coding Level of Care Code Tele Est Pt Level 3 (02949) Complex EM visit Add On G2211 Diagnoses Cervical lymphadenopathy R59.0 Thyromegaly E01.0 Elevated C-reactive protein (CRP) R79.82 Borderline high cholesterol E78.9 Assessment & Plan Assessment & Plan (1) Cervical lymphadenopathy: Code(s): R59.0 - Localized enlarged lymph nodes Category: Medical (2) Thyromegaly: Code(s): E01.0 - Iodine-deficiency related diffuse (endemic) goiter Category: Medical (3) Elevated C-reactive protein (CRP): Code(s): R79.82 - Elevated C-reactive protein (CRP) Category: Medical (4) Borderline high cholesterol: Code(s): E78.9 - Disorder of lipoprotein metabolism, unspecified Category: Medical Plan ,
--- OUTSIDE RECORDS SUMMARY | 2024-10-19 17:17 | XMS_ITS ---
Author Name [facility] Organization Unknown Problems Problem Status Onset Date Problem Type Date of Resoluti on Source Hypertrophy of nasal turbinates active EncounterDiagnosisAct [facility] Localized enlarged lymph nodes active EncounterDiagnosisAct HHCCT
== END 2024-10-19 16:36 | disposition home or self-care (01) ==
LOC: HO.HMCFM 15:25
PROVIDERS: PCP Nurse Practitioner Family; Visit Provider Nurse Practitioner Family
DX: R59.0 Localized enlarged lymph nodes (principal); E01.0 Iodine-deficiency related diffuse (endemic) goiter; R79.82 Elevated C-reactive protein (CRP); E78.9 Disorder of lipoprotein metabolism, unspecified

== ENCOUNTER → 2024-10-19 15:25 | Outpatient (BNVA) | payer BC, SELFPAY | PROVIDERS: PCP Nurse Practitioner Family; Visit Provider Nurse Practitioner Family ==

== ENCOUNTER 2024-11-02 11:15 | Outpatient (REF) | payer BC, SELFPAY ==
--- NOTE | ~2024-11-02 | CT_ITS ---
EXAMINATION: CT NECK SOFT TISSUE WITH IV CONTRAST HISTORY: R59.0 - Localized enlarged lymph nodes TECHNIQUE: Helical axial images were obtained through the neck after IV contrast administration per department protocol. Sagittal and coronal reformatted images were also obtained and reviewed. This CT exam was performed with one or more of the following dose reduction techniques: automated exposure control, adjustment of the mA and/or kV according to patient size, use of iterative reconstruction technique. DLP: 221 mGy-cm COMPARISON: There are no prior studies for comparison. FINDINGS: Orbits: Unremarkable. Sinuses/Mastoid air cells: The visualized paranasal sinuses are clear. Brain: The visualized portion of the brain is unremarkable. Salivary glands: The bilateral parotid and submandibular glands are unremarkable. Nasopharynx/Oropharynx: Unremarkable. The adenoids and lingual tonsils are unremarkable. The parapharyngeal fat is preserved. The epiglottis is unremarkable. Lymph nodes: There are scattered lymph nodes in the neck which measure up to 1.3 cm in maximum short axis dimension. There is no cervical lymphadenopathy. Thyroid gland: The thyroid gland demonstrates heterogeneous echotexture without evidence of discrete nodules. Vessels: There is normal enhancement of the carotid and jugular vessels bilaterally. Larynx/Trachea: No laryngeal abnormality is identified. The airway is patent. Lung Apices: The visualized lung apices are clear. Bones: The bones are intact. CT/CT soft tissue neck w IV con IMPRESSION: Scattered dose bilateral cervical lymph nodes which are not enlarged by CT criteria. Heterogeneous appearing thyroid gland without evidence of discrete nodules. Electronically signed by: Valente Squires MD 11/02/2024 12:35 PM [facility]
[2024-11-02] MEDS: iohexoL 350 MG/ML 100 ML INFUS..BTL 60 ML IV (12:20)
== END 2024-11-02 11:16 | disposition home or self-care (01) ==
LOC: HO.CT 11:15
PROVIDERS: PCP Nurse Practitioner Family; Visit Provider Nurse Practitioner Family
DX: R59.0 Localized enlarged lymph nodes (principal); E01.0 Iodine-deficiency related diffuse (endemic) goiter
CPT/HCPCS: 70491; Q9967

== ENCOUNTER → 2024-11-02 11:16 | Outpatient (BNV) | payer BC, SELFPAY | PROVIDERS: PCP Nurse Practitioner Family; Visit Provider Radiology Diagnostic Radiology | DX: R59.0 Localized enlarged lymph nodes (principal) | CPT/HCPCS: 70491 ==

== ENCOUNTER 2024-11-11 14:09 | Outpatient (AMB) | payer BC, SELFPAY ==
--- NOTE | 2024-11-11 16:10 | MHC.PC.OV ---
Intake Visit Reasons: CT Scan Follow Up Allergies Penicillins Allergy (Severe, Verified 11/11/24 16:19) Swelling Medication List - Last Reconciled 11/11/24 by Maggie Rea [facility]- cetirizine (Zyrtec) 10 mg PO DAILY PRN citalopram 40 mg PO DAILY etonogestrel-ethinyl estradiol 0.12-0.015 mg/24 hr (NuvaRing) 1 vag ring vaginal Q4W lamotrigine 50 mg PO BID lorazepam 0.5 mg PO DAILY PRN Tobacco use date assessed: 11/11/24 Dental Screening Dental Screen Date: 11/11/24 Did you have a dental visit in the last 12 months?: Yes Did you have a dental problem in the last 6 months where you did not have access to dental care?: No Was dental information given to patient?: Patient has dentist HPI HPI Comments History of Present Illness Details Telehealth visit today: 29 y/o F with AJAY, MDD, seasonal allergies, HPV, family hx ovarina cancer, family hx off bladder cancer s/p LEEP, salivary gland removed L Family hx: ovarian ca, bladder ca My mother had a Hysterectomy 2020. (women in the family have had fibroid tumors and a hysterectomy) My mother and grandmother have also had some gallbladder issues. My mother and grandmother had breast lump(s) removed. Negative for malignancy. My mother was in fact diagnosed with Hypothyroidism [id number]. She mother has had cancer of a saliva gland, swollen up and removed 2022. Diagnosed in 2022 my mother has c cell cancer of the thyroid (thyroid) And is still taking chemo pills). Not progressing now. mother and grandmother history of diverticulitis. mother has a heart defect and Ventricular tachycardia. Grandmother has fibromyalgia Social: [employer], works as [employer] Health Maintenance Flu declined Tdap 2023 Pap hx of abnormal, 2023 normal managed by [facility] E[facility] Neuro - no longer following [facility] Prescriber/Counselor The patient is a 29-year-old female presenting with concerns regarding pulsatile tinnitus and lymphadenopathy. The patient reports a history of pulsatile tinnitus, which has become less frequent but occasionally recurs, presenting as a burning sensation upon pressure applied to the carotid area. The condition has been improving, and it is now a rare occurrence. Previously, the sensations were triggered by touching the lymph nodes, which the patient has been feeling primarily on the right side, although imaging showed bilaterality. The lymphadenopathy has been present for years, and she reports episodes of hearing popping sounds which she associates with the rapid opening and closing near the lymph nodes. Additionally, the patient has a thyroid abnormality characterized as heterogeneous, noted on imaging without the presence of nodules. The patient?s family history is notable for her mother having been diagnosed with thyroid cancer at around 40, prompting further vigilance and monitoring. Lastly, the patient discusses a referral to a women?s health clinic for further evaluation. Review of Systems - Ears: Reports pulsatile tinnitus, rare occurrences - Neck: Denies current significant discomfort or additional symptoms - Endocrine: Denies symptomatic thyroid issues Results reviewed 09/21/24 CRP ^ 4.3 , LDL 128 MRI @ [facility] 10/12/[address] of neck (see below) Plan - Continue monitoring lymphadenopathy; not currently concerning - FU with ENT for further examination and interpretation of imaging results in the context of pulsatile tinnitus. - Ensure annual thyroid function tests and examinations in light of familial thyroid cancer history. - Follow-up on women's health evaluation to address previous abnormal findings. Patient was informed and verbally consented to the use of an ambient scribe for clinic note documentation during this visit. Discussion Notes During the consultation, we discussed the significance of the CAT scan findings, particularly focusing on the lymphadenopathy and the thyroid's heterogeneous nature. I reassured the patient that the lymph nodes, though noted, are not of concern based on their current presentation and imaging criteria. The pulsatile tinnitus remains an anomaly; however, its infrequency is a positive sign, though it warrants ENT evaluation for a more comprehensive assessment. We also reviewed the importance of thyroid surveillance given the family history of thyroid cancer. Although her thyroid was described as heterogeneous, the absence of nodules is reassuring. I emphasized that while vigilance is necessary, current findings do not indicate malignancy or cause immediate concern. In terms of gynecological health, the patient is advised to keep me informed about outcomes from her follow-up appointment at the women's clinic. Continuation of routine screenings and sharing any received reports will ensure cohesive management of her reproductive health. Patient Instructions - Attend the ENT appointment as scheduled and ensure a physical copy of the CAT scan images is available for the visit. - Continue periodic thyroid function monitoring and annual medical examinations. - Collect and share any results or notes from the women's health clinic appointment. - Reach out if there are changes in symptoms or if further guidance is needed between appointments. [address] [address] [address] Scan Report Signed Patient: Mary Vázquez MR#: [id number] : 1995 Acct:[id number] Age/Sex: 29 / F ADM Date: 11/02/24 Loc: HO.CT [facility]ending Dr[facility] Order[facility] Physician: Maggie Rea Date of Service: 11/02/24 Procedure(s): CT soft tissue neck w IV con Accession Number(s): [id number] cc: Maggie Rea~ Report Number: [id number]: Total DLP = 221.00 mGy-cm EXAMINATION: CT NECK SOFT TISSUE WITH IV CONTRAST HISTORY: R59.0 - Localized enlarged lymph nodes TECHNIQUE: Helical axial images were obtained through the neck after IV contrast administration per department protocol. Sagittal and coronal reformatted images were also obtained and reviewed. This CT exam was performed with one or more of the following dose reduction techniques: automated exposure control, adjustment of the mA and/or kV according to patient size, use of iterative reconstruction technique. DLP: 221 mGy-cm COMPARISON: There are no prior studies for comparison. FINDINGS: Orbits: Unremarkable. Sinuses/Mastoid air cells: The visualized paranasal sinuses are clear. Brain: The visualized portion of the brain is unremarkable. Salivary glands: The bilateral parotid and submandibular glands are unremarkable. Nasopharynx/Oropharynx: Unremarkable. The adenoids and lingual tonsils are unremarkable. The parapharyngeal fat is preserved. The epiglottis is unremarkable. Lymph nodes: There are scattered lymph nodes in the neck which measure up to 1.3 cm in maximum short axis dimension. There is no cervical lymphadenopathy. Thyroid gland: The thyroid gland demonstrates heterogeneous echotexture without evidence of discrete nodules. Vessels: There is normal enhancement of the carotid and jugular vessels bilaterally. Larynx/Trachea: No laryngeal abnormality is identified. The airway is patent. Lung Apices: The visualized lung apices are clear. Bones: The bones are intact. CT/CT soft tissue neck w IV con IMPRESSION: Scattered dose bilateral cervical lymph nodes which are not enlarged by CT criteria. Heterogeneous appearing thyroid gland without evidence of discrete nodules. Electronically signed by: Valente Squires MD 11/02/2024 12:35 PM [facility] Dictated By: Valente Squires MD Signed By: <Electronically signed by Valente Squires MD in OV> [facility] Medical History (Updated 11/11/24 @ 16:23 by TAM Garcia) Abnormal pelvic exam Salivary duct stones Surgical History (Updated 09/21/24 @ 11:43 by TAM Garcia) H/O LEEP No pertinent past surgical history Family History (Updated 09/21/24 @ 11:01 by Loy Pabon MA) Father Mental health disorder Substance abuse Mother Mental health disorder Substance abuse Asthma Cardiovascular disease Paternal Grandmother Cancer Social History (Updated 09/21/24 @ 10:59 by Loy Pabon MA) Household Members: Significant Other Both parents involved: No Caregiver staying overnight: No Housing: House Are you a primary home care scheduler to a significant other at home: No Do you presently have visiting nurse or other home services: No 75 years or older and lives alone: No Alcohol intake: current Alcohol intake frequency: a few times a month Patient Tobacco Use Status: Never used Tobacco e-Cigarette/Vaping Use: Never Used Second Hand Smoke Exposure: No Current occupational status: employed 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 Valente Raphael, Camila Claudio, Brian Owen and colleagues, with an educational kaleb from [employer]. Physical exam (Primary Care) Tobacco/Smoking Status: Tobacco use Status Tobacco use date assessed 09/21/24 10/19/24 16:20 Patient Tobacco Use Status Never used Tobacco 10/19/24 16:20 e-Cigarette/Vaping Use Never Used 10/19/24 16:20 Thrive Assessment: Date of Thrive Assessment Date Thrive assessed 09/21/24 10/19/24 16:20 Telehealth Telehealth Telehealth Platform: [facility] Location of provider rendering services: practice address Location of patient: address on file Patient Identification confirmed using: Name, : Yes Telehealth method: voice only Patient verbally consented to treatment: Yes Patient verbally consented to billing insurance company: Yes Patient informed of any privacy concerns related to visit: Yes Minutes spent on Phone/Video with Pt.: 11 Coding Level of Care Code Tele Est Pt Level 2 (52376) Complex EM visit Add On G2211 Diagnoses Cervical lymphadenopathy R59.0 Elevated C-reactive protein (CRP) R79.82 Thyromegaly E01.0 Family history of thyroid cancer Z80.8 HPV in female B97.7 Assessment & Plan Assessment & Plan (1) Cervical lymphadenopathy: Code(s): R59.0 - Localized enlarged lymph nodes Category: Medical (2) Elevated C-reactive protein (CRP): Code(s): R79.82 - Elevated C-reactive protein (CRP) Category: Medical (3) Thyromegaly: Comment: Thyroid gland: The thyroid gland demonstrates heterogeneous echotexture without evidence of discrete nodules. CT of neck 10/2024 Code(s): E01.0 - Iodine-deficiency related diffuse (endemic) goiter Category: Medical (4) Family history of thyroid cancer: Comment: mom Code(s): Z80.8 - Family history of malignant neoplasm of other organs or systems Category: Medical (5) HPV in female: Code(s): B97.7 - Papillomavirus as the cause of diseases classified elsewhere Category: Medical Plan .
--- OUTSIDE RECORDS SUMMARY | 2024-11-11 16:26 | XMS_ITS | Clinical Summary ---
Author Organization [facility] Address [address] [place] [id number] Care Team Providers Care Set Up Mechanic Name Role Phone Unavailable Primary Care Provider Unavailabl e Encounters Date Type Department Care Team Description 09/29/2024 Transcribe Orders [facility] Maggie Rea, JON Localized enlarged lymph nodes (Primary Dx); Hypertrophy of nasal turbinates from Last 3 Months Social History Tobacco Use Types Packs/Day Years Used Date Smoking Tobacco: Never Assessed Sex and Gender Information Value Date Recorded Sex Assigned at Not on file Gender Identity Not on file Sexual Orientation Not on file Plan of Treatment Upcoming Encounters Date Type Department Care Team (Late st Contact Info) Description 11/24/2024 11:00 AM EST Office Visit [facility] [address], [place] [address] Paulo Garcia MD [address] [place] [id number] Health Maintenance Due Date Last Done Comments Hepatitis C Virus Screening 1995 HIV Screening 01/13/2009 DTaP/Tdap/Td Vaccines (1 - Tdap) 01/13/2015 Hepatitis B Vaccines (1 of 3 - 19+ 3-dose series) 01/13/2015 Pap Smear (Ages 21-65) 01/13/2017 Influenza Vaccine 05/14/2024 COVID-19 Vaccine ( - 2023-2 5 season) 2024 HPV Vaccines Aged Out No longer eligi ble based on patient's age to complete this topic Pneumococcal Vaccine: Pediat sarahi (0-5 Years) and At-Risk Patients (6 to 49 Years) Aged Out No longer eligible b ased on patient's age to complete this topic [facility] [place] [address]
--- OUTSIDE RECORDS SUMMARY | 2024-11-11 16:26 | XMS_ITS | Clinical Summary ---
Author Organization [facility] ity Address [address] [place] [address] Care Team Providers Care Professor Of Biostatistics Name Role Phone Unavailable Primary Care Provider Unavailabl e Social History Tobacco Use Types Packs/Day Years Used Date Smoking Tobacco: Never Assessed Sex and Gender Information Value Date Recorded Sex Assigned at Not on file Gender Identity Not on file Sexual Orientation Not on file Plan of Treatment Health Maintenance Due Date Last Done Comments DTaP,Tdap,and Td Vaccines (1 - Tdap) 01/13/2015 Hepatitis B Vaccines (1 of 3 - 19+ 3-dose series) 01/13/2015 Cervical Cancer Screening: P ap Smear 01/13/2017 COVID-19 Vaccine ( - 2023-2 5 season) 2024 Influenza Vaccine (#1) 2024 HIB Vaccines Aged Out No longer eligi ble based on patient's age to complete this topic HPV Vaccines Aged Out No longer eligi ble based on patient's age to complete this topic Hepatitis A Vaccines Aged Out No long er eligible based on patient's age to complete this topic IPV Vaccines Aged Out No longer eligi ble based on patient's age to complete this topic MMR Vaccines Aged Out No longer eligi ble based on patient's age to complete this topic Meningococcal ACWY Vaccine Aged Out N o longer eligible based on patient's age to complete this topic Pneumococcal Vaccine: Pediat rics (0 to 5 Years) and At-Risk Patients (6 to 64 Years) Aged Out No longer eligible b ased on patient's age to complete this topic RSV Immunization Patients Un timmy 20 months Aged Out No longer eligible b ased on patient's age to complete this topic Varicella Vaccines Aged Out No longer eligible based on patient's age to complete this topic
== END 2024-11-11 17:05 | disposition home or self-care (01) ==
LOC: HO.HMCFM 14:10
PROVIDERS: PCP Nurse Practitioner Family; Visit Provider Nurse Practitioner Family
DX: R59.0 Localized enlarged lymph nodes (principal); R79.82 Elevated C-reactive protein (CRP); E01.0 Iodine-deficiency related diffuse (endemic) goiter; Z80.8 Family history of malignant neoplasm of other organs or systems; B97.7 Papillomavirus as the cause of diseases classified elsewhere